=== PATIENT | male | born 1995 | race Caucasian/White ===

== ENCOUNTER 2020-03-17 09:41 | Emergency (ER) | payer OTHER, SELFPAY ==
--- NOTE | ~2020-03-17 | CT_ITS ---
EXAMINATION: CT abdomen pelvis w con DATE: 03/17/2020 11:35 INDICATION: Abdominal pain TECHNIQUE: Computed tomography (CT) of the abdomen and pelvis was performed with 100 mL Omnipaque-350 intravenous contrast. Automated exposure control and iterative reconstruction technique were employe d. The dose-length product was 1328.39 mGy-cm. COMPARISON: 02/17/2019 FINDINGS: Mild atelectasis at the right lung base. A couple poorly defined subcentimeter groundglass opacities at the lingula which are new since the prior study and which could be either infectious/inflammatory in etiology or additional subsegmental atelectasis. Heart size is normal. No pericardial or pleural e ffusion. Liver, gallbladder, spleen, pancreas, bilateral adrenal glands and right kidney are normal. Left kidney is normal in appearance but is more inferiorly positioned than normal with accessory left renal artery and vein supplying the lower pole extending to the aorta and inferior vena cava near th e bifurcation and 2 additional accessory left renal arteries extending to the caudal tip of the left kidney from both the left and right common iliac arteries. Normal appendix. Bowels are normal with no wall thickening or obstruction. Bladder and prostate are normal. No free intraperitoneal gas or flui d. No pathologically enlarged abdominal or pelvic lymphadenopathy. Small fat-containing umbilical her josefa. Multiple small Schmorl's nodes in the thoracic spine. Mild likely physiologic anterior wedging a t T11 and T12. IMPRESSION: 1. No acute intra-abdominal/pelvic process. 2. A couple small groundglass opacities at the lingula which could be either infectious/inflammatory in etiology or atelectasis. Reviewed, dictated and finalized at location A. IMPRESSION: 1. No acute intra-abdominal/pelvic process. 2. A couple small groundglass opacities at the lingula which could be either in fectious/inflammatory in etiology or atelectasis.
[2020-03-17 09:55] VITALS: BP 129/93; PULSE 96; RESP 16; TEMP 37.2; O2SAT 100
[2020-03-17 10:16] LABS: Basophils Percent Auto 0.4 % (0.2-1.2); Eosinophils Absolute Auto 0.3 K/mm3 (0-0.3); Eosinophils Percent Auto 3.9 % (0-4.4); Hematocrit 43.8 % (42.0-52.0); Hemoglobin 14.8 g/dL (14.0-18.0); Immature Granulocyte Absolute 0.03 K/mm3 (0.00-0.031); Immature Granulocyte Percent A 0.4 % (0-0.5); Lymphocytes Absolute Auto 2.82 K/mm3 (0.9-3.2); Lymphocytes Percent Auto 35.7 % (18.3-44.2); Mean Corpuscular HGB Conc 33.8 g/dl (32-36); Mean Corpuscular Hemoglobin 29.9 pg (26-34); Mean Corpuscular Volume 88.5 fl (80-100); Mean Platelet Volume 9.2 fl (7.4-10.4); Monocytes Absolute Auto 0.6 K/mm3 (0.1-0.6); Monocytes Percent Auto 7.5 % (2.6-8.5); Neutrophils Absolute Auto 4.1 K/mm3 (1.3-6.7); Neutrophils Percent Auto 52.1 % (45.5-73.1); Platelet Count Result 282 k/mm3 (150-375); Red Blood Count 4.95 M/mm3 (4.6-6.20); Red Cell Distribution Width 12.2 % (11.5-14.5); White Blood Count 7.9 K/mm3 (4.5-10.0)
[2020-03-17 10:18] LABS: Add Urine Microscopic? NO; Appearance Urine Clear (Clear); Bilirubin Urine Negative (Negative); Blood Urine Negative (Negative); Color Urine Straw (Yellow); Glucose Urine UA Negative (Negative); Ketones Urine Negative (Negative); Leukocyte Esterase Ur Negative LEU/UL (Negative); Nitrate Urine Negative (Negative); Protein Urine Negative (Negative); Specific Grav Ur 1.024 (1.001-1.035); Urobilinogen Urine Negative mg/dL (<2.0)
[2020-03-17 10:46] LABS: Alanine Aminotransferase 15 U/L (4-50); Albumin Level 4.8 g/dL (3.5-5.1); Alkaline Phosphatase 51 U/L (38-126); Aspartate Amino Transferase 28 U/L (17-59); Bilirubin,Total 0.5 mg/dL (0.2-1.3); Blood Urea Nitrogen 15 mg/dL (9-20); Calcium 9.2 mg/dL (8.4-10.2); Carbon Dioxide 27 mmol/L (22-30); Chloride 101 mmol/L (98-107); Estimated CRCL calculation 115 ml/min; Estimated Glomerular Filt Rate > 60; Glucose 75 mg/dL (75-110); Lipase 82 U/L (23-300); Potassium 3.9 mmol/L (3.4-5.0); Sodium 137 mmol/L (137-145)
[2020-03-17] MEDS: SODIUM CHLORIDE 0.9% IV 1,000 ML 999 ML IV CONT (10:50)
[2020-03-17] MEDS: FAMOTIDINE 20 MG/2 ML VIAL IV PUSH (10:50)
--- NOTE | 2020-03-17 11:19 | ED.ABDPAIN ---
HPI - Abdominal Pain General Chief Complaint: Abdominal Pain Stated Complaint: abd pain Time Seen by Provider: 03/17/20 10:13 Source: patient Mode of arrival: ambulatory Limitations: no limitations History of Present Illness HPI narrative: Patient is a 25-year-old male who presents to emergency department for evaluation of generalized abdominal pain that is now worsened and located to the right lower quadrant has been present for 1 week patient notes that this is different for him notes some nausea but denies vomiting notes that he had had some loose stools with some red blood noted. Patient denies fever vomiting. Patient does note history of possible irritable bowel disease. Patient on arrival is in the room in no distress has not been seen for this complaint. Patient notes that he is followed by gastroenterology Related Data Home Medications Medication Instructions Recorded Confirmed mesalamine [Pentasa] PO 03/17/20 Allergies Allergy/AdvReac Type Severity Reaction Status Date / Time No Known Allergies Allergy Unknown Verified 03/17/20 10:13 Review of Systems Review of Systems: All systems reviewed & are unremarkable except as noted in HPI and below PMFSH Social History Social History (Updated 03/17/20 @ 11:29 by Ed Humphreys PA-C) Smoking status: Never smoker Exam Narrative: Exam Narrative: GENERAL: Well-appearing, well-nourished, and in no acute distress. HEAD: Normocephalic, atraumatic. EYES: PERRLA and EOMI. ENT: Nares clear, no rhinorrhea or epistaxis. Mucous membranes moist. CHEST: Clear to auscultation. No respiratory distress. No wheezes rales or rhonchi HEART: Regular rate and rhythm. No murmur heard. Normal peripheral pulses. ABDOMEN: Soft, right lower quadrant tenderness to palpation, nondistended EXTREMITIES: Normal range of motion. No edema. SKIN: Warm, dry, no rash. NEURO: No focal deficits. Alert and oriented x3. PSYCH: Normal mood and affect. 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 Patient felt appropriate for outpatient reevaluation without any high risk changes in the blood work or imaging Vital Signs Vital signs: Vital Signs Temperature 99 F 03/17/20 09:55 Pulse Rate 96 03/17/20 09:55 Respiratory Rate 16 03/17/20 09:55 Blood Pressure 129/93 H 03/17/20 09:55 Pulse Oximetry 100 03/17/20 09:55 Temperature 99 F 03/17/20 09:55 Pulse Rate 96 03/17/20 09:55 Respiratory Rate 16 03/17/20 09:55 Blood Pressure 129/93 H 03/17/20 09:55 Pulse Oximetry 100 03/17/20 09:55 MDM - Abdominal Pain MDM Narrative Medical decision making narrative: Patient agreeing to follow-up as directed was given medications in the emergency department patient felt appropriate for outpatient reevaluation agreeing to follow-up as directed or to return if symptoms worsen or concern Differential Diagnosis Differential diagnosis: Likely abdominal pain, acute appendicitis, calculus of kidney, constipation, diverticulitis, gastroenteritis and small bowel obstruction Lab Data Result diagrams: 03/17/20 10:02 03/17/20 10:02 Labs: Lab Results 03/17/20 03/17/20 03/17/20 Range/Units 10:02 10:02 10:02 WBC 7.9 (4.5-10.0) K/mm3 RBC 4.95 (4.6-6.20) M/mm3 Hgb 14.8 (14.0-18.0) g/dL Hct 43.8 (42.0-52.0) % MCV 88.5 (80-100) fl MCH 29.9 (26-34) pg MCHC 33.8 (32-36) g/dl RDW 12.2 (11.5-14.5) % Plt Count 282 (150-375) k/mm3 MPV 9.2 (7.4-10.4) fl Immature Gran % (Auto) 0.4 (0-0.5) % Neut % (Auto) 52.1 (45.5-73.1) % Lymph % (Auto) 35.7 (18.3-44.2) % [place] % (Auto) 7.5 (2.6-8.5) % Eos % (Auto) 3.9 (0-4.4) % Baso % (Auto) 0.4 (0.2-1.2) % Lymph # (Auto) 2.82 (0.9-3.2) K/mm3 [place] # (Auto) 0.6 (0.1-0.6) K/mm3 Eos # (Auto) 0.3 (0-0.3) K/mm3
[2020-03-17 11:59] VITALS: BP 121/59; PULSE 55; RESP 18; O2SAT 99
[2020-03-17 12:40] VITALS: BP 141/81; PULSE 64; RESP 14; O2SAT 99
== END 2020-03-17 12:41 | disposition home or self-care (01) ==
PROVIDERS: Emergency Provider Emergency Medicine
DX: R10.84 Generalized abdominal pain (principal)
CPT/HCPCS: 36415; 74177; 80053; 81003; 83690; 85025; 96361; 96374; 96375; 99284; J0131; J7030; Q9967

== ENCOUNTER 2020-06-20 06:26 | Emergency (ER) | payer OTHER, SELFPAY ==
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
[2020-06-20 06:32] VITALS: BP 150/85; PULSE 100; RESP 18; TEMP 36.9; O2SAT 100
--- NOTE | 2020-06-20 06:54 | PC.NURSE ---
Patient in xray.
--- NOTE | 2020-06-20 07:10 | PC.NURSE ---
ASSUMED PT CARE AT THIS TIME FROM RN CAT, PT IN RADIOLOGY.
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
[2020-06-20 08:55] VITALS: BP 129/68; PULSE 72; RESP 18; O2SAT 100
== END 2020-06-20 08:56 | disposition home or self-care (01) ==
PROVIDERS: Emergency Provider Emergency Medicine
DX: S16.1XXA Strain of muscle, fascia and tendon at neck level, initial encounter (principal); M25.511 Pain in right shoulder; V49.40XA Driver injured in collision with unspecified motor vehicles in traffic accident, initial encounter
CPT/HCPCS: 72040; 73030; 73060; 73080; 99284

== ENCOUNTER 2020-09-16 16:58 | Emergency (ER) | payer OTHER, SELFPAY ==
--- NOTE | ~2020-09-16 | CT_ITS ---
EXAMINATION: CT abdomen pelvis w con DATE: 09/16/2020 20:05 INDICATION: Left lower quadrant abdominal pain with rectal bleeding TECHNIQUE: Computed tomography (CT) of the abdomen and pelvis was performed with 100 mL Omnipaque-350 intravenous contrast. Automated exposure control and iterative reconstruction technique were employe d. The dose-length product was 1400.60 mGy-cm. COMPARISON: 03/17/2020 FINDINGS: Mild discoid atelectasis at the right lower lobe. Prior small round glass opacities at the lingula bright ve resolved. Heart size is normal. No pericardial or pleural effusion. Liver, gallbladder, spleen, pa ncreas, bilateral adrenal glands and right kidney are normal. Left kidney is normal in appearance but is more inferiorly positioned than normal with additional accessory renal arteries as previously det demetrio. There are few diverticula along the sigmoid colon without adjacent inflammatory change to sugg est diverticulitis. Small bowel and appendix are normal. Bladder and prostate are normal. No free int raperitoneal gas or fluid. No pathologically enlarged abdominal or pelvic lymphadenopathy. Small fat- containing umbilical hernia. Multiple small Schmorl's nodes in the thoracic spine. Mild likely physio logic anterior wedging at T11 and T12. IMPRESSION: 1. No acute intra-abdominal/pelvic process. Reviewed, dictated and finalized at location A. 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
[2020-09-16 17:03] VITALS: BP 149/82; PULSE 110; RESP 16; TEMP 36.3; O2SAT 100
[2020-09-16 17:44] LABS: Add Urine Microscopic? YES; Appearance Urine Clear (Clear); Bilirubin Urine Negative (Negative); Blood Urine Negative (Negative); Color Urine Yellow (Yellow); Glucose Urine UA Negative (Negative); Ketones Urine Negative (Negative); Leukocyte Esterase Ur Trace LEU/UL (Negative); Nitrate Urine Negative (Negative); Protein Urine Negative (Negative); RBC Urine 0-2 /hpf (0-2); Specific Grav Ur 1.019 (1.001-1.035); Squamous Epithelial Cell Urine Rare /hpf (Few); Urobilinogen Urine Negative mg/dL (<2.0)
[2020-09-16 18:25] LABS: Basophils Absolute Auto 0.1 K/mm3 (0.0-0.1); Basophils Percent Auto 0.6 % (0.2-1.2); Eosinophils Absolute Auto 0.3 K/mm3 (0-0.3); Eosinophils Percent Auto 3.8 % (0-4.4); Hematocrit 42.6 % (42.0-52.0); Hemoglobin 14.8 g/dL (14.0-18.0); Immature Granulocyte Absolute 0.02 K/mm3 (0.00-0.031); Immature Granulocyte Percent A 0.3 % (0-0.5); Lymphocytes Absolute Auto 2.54 K/mm3 (0.9-3.2); Mean Corpuscular HGB Conc 34.7 g/dl (32-36); Mean Corpuscular Hemoglobin 30.5 pg (26-34); Mean Corpuscular Volume 87.8 fl (80-100); Mean Platelet Volume 9.2 fl (7.4-10.4); Monocytes Absolute Auto 0.5 K/mm3 (0.1-0.6); Monocytes Percent Auto 5.7 % (2.6-8.5); Neutrophils Absolute Auto 4.6 K/mm3 (1.3-6.7); Neutrophils Percent Auto 57.6 % (45.5-73.1); Platelet Count Result 241 k/mm3 (150-375); Red Blood Count 4.85 M/mm3 (4.6-6.20); Red Cell Distribution Width 12.1 % (11.5-14.5); White Blood Count 7.9 K/mm3 (4.5-10.0)
[2020-09-16 18:36] LABS: Alanine Aminotransferase 16 U/L (4-50); Albumin Level 4.5 g/dL (3.5-5.1); Alkaline Phosphatase 50 U/L (38-126); Anion Gap 6 mmol/L (8-16); Aspartate Amino Transferase 34 U/L (17-59); Bilirubin,Total 0.5 mg/dL (0.2-1.3); Blood Urea Nitrogen 17 mg/dL (9-20); Calcium 9.3 mg/dL (8.4-10.2); Carbon Dioxide 29 mmol/L (22-30); Chloride 102 mmol/L (98-107); Estimated CRCL calculation 126 ml/min; Estimated Glomerular Filt Rate > 60; Glucose 95 mg/dL (75-110); Lipase 58 U/L (23-300); Potassium 3.7 mmol/L (3.4-5.0); Sodium 137 mmol/L (137-145)
[2020-09-16 18:53] VITALS: BP 125/71; PULSE 75; RESP 18; O2SAT 100
[2020-09-16] MEDS: METOCLOPRAMIDE HCL INJ 10 MG/2 ML VIAL IV PUSH (18:53)
--- NOTE | 2020-09-16 20:24 | ED.ABDPAIN ---
HPI - Abdominal Pain General Chief Complaint: Abdominal Pain <RENY Andrew Last Filed: 09/16/20 20:42> Stated Complaint: L SIDED ABD PAIN XTD <RENY Andrew Last Filed: 09/16/20 20:42> Time Seen by Provider: 09/16/20 17:23 <RENY Andrew Last Filed: 09/16/20 20:42> Source: patient <RENY Andrew Last Filed: 09/16/20 20:42> Mode of arrival: ambulatory <RENY Andrew Last Filed: 09/16/20 20:42> Limitations: no limitations <RENY Andrew Last Filed: 09/16/20 20:42> History of Present Illness HPI narrative: Patient presents with chief complaint of left lower quadrant abdominal pain. And some rectal bleeding that began today. Patient states that he has been diagnosed with irritable bowel disease but he has not been diagnosed with Crohn's or ulcerative colitis. He states that he has a GI specialist that he sees in [place] and he is on Pentasa for his stomach symptoms. Patient states that he did have some diarrhea the past few days. Patient reports today after having a bowel movement he did note bright red blood when wiping as well as some drip into the toilet. Patient states he has some nausea but has not had vomiting or black tarry stools. <RENY Andrew Last Filed: 09/16/20 20:42> Related Data Home Medications: Home Medications Medication Instructions Recorded Confirmed mesalamine [Pentasa] 1,000 mg PO QID 03/17/20 <RENY Andrew Last Filed: 09/16/20 20:42> Allergies/Adverse Reactions: Allergies Allergy/AdvReac Type Severity Reaction Status Date / Time No Known Allergies Allergy Unknown Verified 06/20/20 06:29 <RENY Andrew Last Filed: 09/16/20 20:42> Review of Systems Review of Systems: Narrative: CONSTITUTIONAL: Denies fever, chills, or sweats. EYES: Denies visual changes, redness, or discharge. ENT: Denies rhinorrhea, congestion, sore throat, or otalgia. CARDIOVASCULAR: Denies chest pain, palpitations, or edema. RESPIRATORY: Denies cough or dyspnea. GASTROINTESTINAL: Reports left lower quadrant abdominal pain, nausea, denies vomiting, or diarrhea. GENITOURINARY: Denies dysuria or hematuria. SKIN: Denies rash or itching. MUSCULOSKELETAL: Denies back pain, joint pain, or myalgia. NEUROLOGIC: Denies headache, numbness, dizziness, or weakness. PSYCHIATRIC: Denies anxiety or depression. <Marcus Mazariegos PA-C - Last Filed: 09/16/20 20:42> PMFSH Social History Social History: Social History Smoking status: Never smoker Gender identity (if verbalized by the patient): Male <Marcus Mazariegos PA-C - Last Filed: 09/16/20 20:42> Exam Narrative: Exam Narrative: GENERAL: Well-appearing, well-nourished, and in no acute distress. HEAD: Normocephalic, atraumatic. EYES: PERRLA and EOMI. NECK: Supple. No adenopathy or masses. CHEST: Clear to auscultation. No respiratory distress. No wheezes rales or rhonchi HEART: Regular rate and rhythm. No murmur heard. Normal peripheral pulses. ABDOMEN: Soft, mildly tender with deep palpation, nondistended, normal active bowel sounds.There is positive Hemoccult but not blood running out of rectum. external hemorrhoids not noted. Patient refused to relax enough for thorough exam for internal hemorrhoids. EXTREMITIES: Normal range of motion. No edema. SKIN: Warm, dry, no rash. NEURO: No focal deficits. Alert and oriented x3. PSYCH: Normal mood and affect. <Marcus Mazariegos PA-C - Last Filed: 09/16/20 20:42> Course Vital Signs Vital signs: Vital Signs Temperature 97.4 F L 09/16/20 17:03 Pulse Rate 110 H 09/16/20 17:03 Respiratory Rate 16 09/16/20 17:03 Blood Pressure 149/82 H 09/16/20 17:03 Pulse Oximetry 100 09/16/20 17:03 Temperature 97.4 F L 09/16/20 17:03 Pulse Rate 81 09/16/20 20:48 Respiratory Rate 18 09/16/20 20:48 Blood Pressure 124/72
[2020-09-16 20:48] VITALS: BP 124/72; PULSE 81; RESP 18; O2SAT 98
== END 2020-09-16 20:59 | disposition home or self-care (01) ==
PROVIDERS: Physician Assistant; Emergency Provider General Practice
DX: R10.32 Left lower quadrant pain (principal); K62.5 Hemorrhage of anus and rectum; K58.9 Irritable bowel syndrome, unspecified
CPT/HCPCS: 36415; 74177; 80053; 81001; 83690; 85025; 96365; 96375; 99284; J0131; J2765; Q9967

== ENCOUNTER 2022-11-04 10:13 | Emergency (ER) | payer OTHER, SELFPAY ==
--- NOTE | ~2022-11-04 | XR_ITS ---
EXAMINATION: [id number] DATE: 11/04/2022 10:56 INDICATION: Left chest pain. TECHNIQUE: A frontal view of the chest and 2 views on 3 radiographs of the left ribs were obtained. COMPARISON: None. FINDINGS: The chest demonstrates clear lungs without pneumonia, pleural effusion, or pneumothorax. Th e heart size is normal. IMPRESSION: 1. No rib fracture. 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 No rib fracture.
[2022-11-04 10:30] VITALS: BP 130/71; PULSE 75; RESP 16; TEMP 36.9; O2SAT 98
--- NOTE | 2022-11-04 10:37 | ED.CHESTPAIN ---
HPI - Chest Pain General Chief Complaint: Unspecified Stated Complaint: chest pain,finger numbness Time Seen by Provider: 11/04/22 11:03 Source: patient Mode of arrival: ambulatory Limitations: no limitations History of Present Illness HPI narrative: 37-year-old male presents concern for right-sided rib pain that started 2 days ago. 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 his right rib area. Reports a goes from the front the ribs on armpit into the back of the ribs. He denies any direct trauma. Denies present swelling, redness. Denies rash. Reports he has rested and used ice. Reports pain is slowly improving. He reports pain is exacerbated by activity, deep breathing and coughing. MD complaint: other (Chest wall pain) Related Data Allergies Allergy/AdvReac Type Severity Reaction Status Date / Time No Known Allergies Allergy Unknown Verified 11/04/22 10:48 Review of Systems Review of Systems: CONSTITUTIONAL: Denies malaise, chills, sweats, or fever. CARDIOVASCULAR: Denies chest pain, palpitations, or edema. RESPIRATORY: Denies cough or dyspnea. GASTROINTESTINAL: Denies abdominal pain, nausea, vomiting, diarrhea SKIN: Denies bruising, redness, swelling, rash MUSCULOSKELETAL: Reports right rib pain NEUROLOGIC: Denies numbness, weakness All systems reviewed & are unremarkable except as noted in HPI and below PMFSH Social History Social History Smoking status: Never smoker Gender identity (if verbalized by the patient): Male Comments At time of signature, agree with nursing past medical, surgical, social and family history. There is no relevant family history pertinent to the presenting complaint Exam Narrative: GENERAL: Well-appearing, well-nourished, and in no acute distress. HEAD: Normocephalic, atraumatic. EYES: PERRLA, sclera clear, and EOMI. No nystagmus. ENT: Nares clear. Mucous membranes moist. NECK: Supple. CHEST: No respiratory distress. Clear to auscultation. No bony deformities, no asymmetry. Speaks in full sentences. HEART: Regular rate and rhythm. No murmur heard. Normal peripheral pulses. EXTREMITIES: Normal range of motion. No edema. Normal strength and sensation. SKIN: Warm, dry, no visible rash. No bruising, redness, warmth to chest or rib area. Tenderness to the right mid ribs NEURO: Alert and oriented x3. PSYCH: Normal mood and affect Course Course Emergency Course: Patient is aware of diagnosis, understands and agrees to treatment plan. Anticipatory guidance given. Patient agrees to follow-up as directed and is aware of reasons to seek care at the emergency department. Portions of this record may have been created with voice recognition software Level of Care: Express Care Visit Vital Signs Vital signs: Vital Signs Temperature 98.4 F 11/04/22 10:30 Pulse Rate 75 11/04/22 10:30 Respiratory Rate 16 11/04/22 10:30 Blood Pressure 130/71 11/04/22 10:30 Pulse Oximetry 98 11/04/22 10:30 Temperature 98.4 F 11/04/22 10:30 Pulse Rate 75 11/04/22 10:30 Respiratory Rate 16 11/04/22 10:30 Blood Pressure 130/71 11/04/22 10:30 Pulse Oximetry 98 11/04/22 10:30 Reviewed. MDM - Chest Pain MDM Narrative Medical decision making narrative: Patients injury and pain is consistent with musculoskeletal etiology. No signs of neurological or vascular compromise on exam. Pain is felt appropriate for further evaluation on an outpatient basis. Imaging Data My impression: Images reviewed, interpreted by radiologist, agree, see report. Radiologist's impression: EXAMINATION: [id number] DATE: 11/04/2022 10:56 INDICATION: Left chest pain. TECHNIQUE: A frontal view of the chest and 2 views on 3 radiographs of the left ribs were obtained. COMPARISON: None. FINDINGS: The chest demonstrates clear lungs without pneumonia, pleural effusion, or pneumothorax. The heart size is normal. IMPRESSIO
== END 2022-11-04 11:18 | disposition home or self-care (01) ==
PROVIDERS: Emergency Provider Nurse Practitioner
DX: R07.81 Pleurodynia (principal)
CPT/HCPCS: 71101; 99213; G0463

== ENCOUNTER 2024-08-04 13:19 | Emergency (ER) | payer OTHER, SELFPAY ==
--- NOTE | 2024-08-04 13:20 | ED.URI ---
HPI - URI/Sore Throat General Chief Complaint: Upper Respiratory Infection Stated Complaint: Sinus/Fever Time Seen by Provider: 08/04/24 13:20 Source: patient Mode of arrival: ambulatory Limitations: no limitations History of Present Illness HPI Narrative: Patient is a 29-year-old male who presents with 6 days of congestion, fever, chills and productive cough. Patient has also had few episodes of diarrhea. Reports family members in house have been diagnosed with pneumonia. Patient has history of asthma and has been using his albuterol inhaler. Patient has also been using [id number] medication with no relief. Related Data Allergies Allergy/AdvReac Type Severity Reaction Status Date / Time No Known Allergies Allergy Unknown Verified 08/04/24 13:36 Review of Systems Review of Systems: All systems reviewed & are unremarkable except as noted in HPI and below Constitutional: Constitutional: Denies body ache(s), Denies chills, Denies fatigue, Reports fever(s), Denies headache(s), Denies malaise and Denies weakness Eyes: Eyes: Denies blurry vision, Denies itchy eyes and Denies loss of vision ENT: Denies otalgia, Denies headache(s), Reports nasal congestion, Denies sinus pain and Denies sore throat Cardiovascular: Cardiovascular: Denies chest pain, Denies irregular heart rhythm and Denies dyspnea Respiratory: Respiratory: Reports cough and Denies dyspnea Gastrointestinal: Gastrointestinal: Denies abdominal pain, Reports diarrhea, Denies nausea and Denies vomiting Musculoskeletal: Musculoskeletal: Denies back pain, Denies myalgias and Denies arthralgias Integumentary/Breasts: Skin/Breast: Denies pruritus and Denies rash Neurologic: Denies headache(s), Denies loss of vision and Denies weakness Psychiatric: Psychiatric: Reports no additional psychiatric complaints Endocrine: Endocrine: Denies fatigue Allergic/Immunologic: Allergic/Immunologic: Denies itchy eyes PMFSH Social History Social History Smoking status: Never smoker Gender identity (if verbalized by the patient): Male Comments At time of signature, agree with nursing past medical, surgical, social and family history. There is no relevant family history pertinent to the presenting complaint. Exam Const: General: cooperative, healthy appearing, comfortable, no acute distress and well nourished Nutritional Appearance: well nourished Orientation/consciousness: patient oriented x3 Limitations: no limitations HENMT: Head: normal to inspection, normocephalic and atraumatic Ears: hearing grossly normal bilaterally, external ears normal, TM's normal bilaterally, EAC's normal and no periauricular adenopathy Face/Nose/Sinus: Normal external nose present, Abnormal mucous membranes and turbinates present erythematous bilateral and diffuse, normal facial exam, sinuses nontender and face symmetric Face and sinus: normal facial exam, sinuses nontender and face symmetric Mouth: Yes Normal oral and palatal mucosa present, Yes lip normal, Yes tongue normal, Yes Normal salivary glands and ducts present, Yes oropharynx normal and Yes moist mucous membranes Teeth and gingiva: dentition normal Throat: posterior oropharynx normal, tonsils normal and uvula midline Eyes: General: appearance normal, both eyes and all related structures Alignment and Position: alignment normal and position normal Periorbital: periorbital findings normal Eyelids: eyelids normal Pupils: Equal, round and reactive pupils present Neck: Neck: normal visual inspection, full ROM, no lymphadenopathy and supple Chest: Chest palpation & inspection: normal inspection of the chest and normal palpation of entire chest wall Resp: Effort & Inspection: normal respiratory effort and able to speak in complete sentences Auscultation: no crackles, no rales, no rhonchi and wheezes inspiratory wheezes and throughout Cardio: Rate: regular rate Rhythm: regular rhythm Heart sounds: S1 normal heart sound present and S2 normal heart sound present GI: Inspection: normal to inspection Skin: General skin exam: normal color and no rashes or lesions noted Neuro: General: patient oriented x3 and moves all extremities Cranial nerves: Yes Equal, round and reactive pupils present Speech: normal speech Gait exam (Neuro): Normal gait present Extrem: General: normal to inspection, full ROM and no edema Psych: Appearance: grossly normal and well kempt Mental Status: mental status grossly normal Speech and movement: Normal speech and movement present Affect: normal affect Attitude: cooperative Thought process: Normal thought process present Course Course Emergency Course: Patient is aware of diagnosis, understands and agrees to treatment plan. Anticipatory guidance given. Patient agrees to follow-up as directed and is aware of reasons to seek care at the emergency department. Portions of this record may have been created with voice recognition software Level of Care: Express Care Visit Vital Signs Vital signs: Vital Signs Temperature 36.9 C 08/04/24 13:29 Pulse Rate 81 08/04/24 13:29 Respiratory Rate 16 08/04/24 13:29 Blood Pressure 137/75 08/04/24 13:29 Pulse Oximetry 96 08/04/24 13:29 Oxygen Delivery Room Air 08/04/24 13:29 Temperature 36.9 C 08/04/24 13:29 Pulse Rate 81 08/04/24 13:29 Respiratory Rate 16 08/04/24 13:29 Blood Pressure 137/75 08/04/24 13:29 Pulse Oximetry 96 08/04/24 13:29 Oxygen Delivery Room Air 08/04/24 13:29 Reviewed MDM - URI/Sore Throat MDM Narrative Medical decision making narrative: Discharge instructions reviewed with patient, as well as provided in writing per nursing staff. The instructions also include specific and strict return/GO TO THE ER as well as f/u information. All questions have been answered, and the patient deny any further questions with discharge and discharge plan. Differential diagnosis considered: Mart virus, strep pharyngitis, allergic rhinitis, upper respiratory tract infection, sinusitis, rhinosinusitis, nasopharyngitis. viral pharyngitis, otitis media, otitis externa, otitis effusion, foreign body, cerumen impaction, viral syndrome, and influenza.? Exam findings show no acute concerns or changes; patient is non-toxic appearing and is in no distress.? Patient is appropriate for outpatient treatment and follow-up.? Medical Records Attestation: I reviewed the patient's medical records. Discharge Plan Discharge Clinical Impression: Upper respiratory infection with cough and congestion, History of asthma Patient Disposition: Home, Self-Care Condition: Stable Instructions: Upper Respiratory Infection (ED) Additional Instructions: Take antibiotic as prescribed. Take steroids in the morning with food. Use Tessalon Perles as needed for cough. Use inhaler with spacer as needed. Other symptomatic treatments include: -Alternate Tylenol and Motrin per package directions for fever or pain. -Antihistamine medication such as Benadryl at night and Zyrtec/Claritin/Brittani during the day can help improve symptoms. -Use Flonase twice a day for 5 days then daily to help reduce the inflammation and dry up your sinuses. -You can also use Sudafed or Mucinex. Be sure to drink plenty of water with these medications at least 8 ounces with every dose and it is important to drink 8 to 10 glasses of water per day. Water is a natural decongestant -Eat and drink things that are easy to swallow, like tea or soup, or popsicles. -Oral rinses such as: Salt water gargles and/or may use topical anesthetic (eg. Chloraseptic spray) or lozenges to relieve dryness or throat pain). -Frequent hand washing or hand consumer science teacher is one of the best ways to prevent spread of infection. -Using a vaporizer or humidifier at night will also help thin secretions and help with coughing up phlegm. -Follow up with primary care provider in 3-5 days if condition is not improving - For new or worsening symptoms go directly to the nearest ER Prescriptions: New benzonatate 100 mg capsule 100 mg PO BID PRN (Reason: cough) Qty: 14 0RF albuterol sulfate 90 mcg/actuation HFA aerosol inhaler 2 puff inhalation QID PRN (Reason: shortness of breath or wheezing) Qty: 6.7 0RF prednisone 20 mg tablet 40 mg PO DAILY 5 Days Qty: 10 0RF amoxicillin 875 mg tablet 875 mg PO Q12H 7 Days Qty: 14 0RF Follow-up/Referrals: Nav Kelsey MD [Physician] - 3 Days (Establish care) UNKNOWN,DOCTOR [Non-Staff] - Time of Disposition: 14:20
[2024-08-04 13:29] VITALS: BP 137/75; PULSE 81; RESP 16; TEMP 36.9; O2SAT 96
== END 2024-08-04 14:25 | disposition home or self-care (01) ==
PROVIDERS: Emergency Provider Nurse Practitioner Family
DX: J06.9 Acute upper respiratory infection, unspecified (principal); R05.9 Cough, unspecified; J45.909 Unspecified asthma, uncomplicated; K50.90 Crohn's disease, unspecified, without complications; F84.5 Asperger's syndrome; F12.90 Cannabis use, unspecified, uncomplicated
CPT/HCPCS: 99213; G0463

== ENCOUNTER 2025-01-13 14:07 | Emergency (ER) | payer OTHER, SELFPAY ==
--- NOTE | ~2025-01-13 | CT_ITS ---
EXAMINATION: CT BRAIN W/O DATE: 01/13/2025 14:40 INDICATION: Headache TECHNIQUE: Computed tomography (CT) of the head was performed without intravenous contrast. The dose- length product was 605.33 mGy-cm. Automated exposure control and iterative reconstruction technique were employed. COMPARISON: No prior studies for comparison. FINDINGS: Normal brain parenchymal volume for age. Normal eastman-white differentiation. No acute intrac ranial hemorrhage, infarction, mass or mass effect. No ventriculomegaly or midline shift. Midline sagittal images demonstrate a normal corpus callosum, c raniovertebral junction and sella turcica. Basilar cisterns are patent. There is mild mucosal thickening of the ethmoid sinuses. Mastoids are pneumatized. No depressed skull fractures. IMPRESSION: 1. No acute intracranial abnormality. Reviewed, dictated and finalized at location A.
[2025-01-13 14:09] VITALS: PULSE 75; RESP 16; TEMP 36.6; O2SAT 98
--- OUTSIDE RECORDS SUMMARY | 2025-01-13 14:16 | XMS_ITS | Referral Summary ---
Author Organization [facility] Address [address] [place] [address] Care Team Providers Care Bit Sander Name Role Phone Veronica Rebolledo Primary Care Provider [phone] Allergies No known active allergies Medications amitriptyline (ELAVIL) 25 mg tablet TK 2 TS PO QHS 0 10/03/2018 Active mesalamine (PENTASA) 500 mg CR capsule Take 500 mg by mouth 4 (four) times a day Active linaCLOtide (LINZESS) 145 mcg capsule 145 mcg daily Active albuterol (PROAIR RESPICLICK) 90 mcg/actuation inhaler Inhale 2 puffs 4 (four) times a day 1 Inhaler 12/21/2019 Active Active Problems Problem Noted Date Diagnosed Date BMI 39.0-39.9,adult 10/29/2019 Assessment & Plan (11/15/2019 4:13 PM CDT): Obesity is unchanged. Discussed the patient's BMI. The BMI is above average. BMI management plan is completed. BMI Follow-up includes: nutrition counseling, exercise counseling and education provided. Positive depression screening 10/29/2019 Assessment & Plan (11/15/2019 4:13 PM CDT): Discussed considering Cymbalta due to the positive screen and pain. Pt declines at this point. If sxs increase, notes suicidal or homicial thoughts (currently denies) he is to followup immediately or go to ER BMI 40.0-44.9, adult 08/11/2019 Assessment & Plan (08/11/2019 1:46 PM BRAZER HELPER INDUCTION): Obesity is unchanged. Discussed the patient's BMI. The BMI is above average. BMI management plan is completed. BMI Follow-up includes: nutrition counseling, exercise counseling and education provided. Morbid obesity 08/11/2019 Assessment & Plan (08/11/2019 1:46 PM BRAZER HELPER INDUCTION): Obesity is unchanged. Discussed the patient's BMI. The BMI is above average. BMI management plan is completed. BMI Follow-up includes: nutrition counseling, exercise counseling and education provided. 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 Another order given as he didn't follow thru with it last time. If sxs persist, may consider referral back to the specialist that have treated him in the past. Knee pain 01/16/2012 Pain of lower extremity 07/06/2011 Assessment & Plan (08/17/2019 8:29 PM BRAZER HELPER INDUCTION): Pain in the lower leg. Recommend PT to better assess his sxs. He is willing to go. Use NSAIDs as tolerated. If sxs persist, may consider returning to [facility] as this was where his original peroneal nerve surgery was done. Immunizations Immunization Administration Dates Next Due DTaP, Unspecified 07/10/1997, 7,1996,05/02 HPV, Quadrivalent 07/09/2012,04/01/2012,07/05/20 11 Hep A, Unspecified 05/02/2010,11/02/2006 Hep B, Unspecified 01/06/1997,1996, 996 HiB 1996,1996,1996 Influenza, Quadrivalent, Spl it, Preservative Free, Intramuscular 06/24/2017 Influenza, Trivalent, Preser vative Free, Intramuscular 07/23/2014 Influenza, Unspecified 06/02/2018,2012,07/09/2012,07/05,06/09/2010,06/08/2009,07/22/2008 ,06/12/2007 MMR 04/21/1997 Meningococcal ACWY, Unspecified 09/24/2014,05/02 Polio, Unspecified 1996,1996, 996 Tdap 01/12/2015,11/02/2006 Varicella 11/02/2006,04/21/1997 Social History Tobacco Use Types Packs/Day Years Used Date Smoking Tobacco: Former Cigarettes Smokeless Tobacco: Never Comments:Smoked for one french h Alcohol Use Standard Drinks/Week Comments No 0 (1 standard drink = 0.6 oz pur e alcohol) PHQ-2 Answer Date Recorded PHQ-2 Score 3 10/29/2019 Sex and Gender Information Value Date Recorded Sex Assigned at Not on file Legal Sex Male 8:03 AM BRAZER HELPER INDUCTION Gender Identity Not on file Sexual Orientation Not on file Last Filed Vital Signs Vital Sign Reading Time Taken Comments Blood Pressure 118/70 12/21/2019 2:15 PM CDT Pulse 63 12/21/2019 1:46 PM CDT Left hand Temperature 35.9 C (96.7 F) 12/21/2019 1:44 PM CDT Respiratory Rate 18 11/25/2018 1:55 PM CDT Oxygen Saturation 98% 12/21/2019 1:46 PM CDT Left hand Inhaled Oxygen Concentration - - Weight 108.9 kg (240 lb) 12/21/2019 1:44 PM CDT Height 172.7 cm (5' 8 ) 12/21/2019 1:44 PM CDT Body Mass Index 36.49 12/21/2019 1:44 PM CDT Plan of Treatment Not on file Insurance [facility] Address: [address] [place] [address] [facility] [facility] [employer] Address: [address] [place] [address] Care Teams Bit Sander Relationship Specialty Start Date End Date Veronica Rebolledo PA [address] [facility] [address] [place] [address] PCP - General Internal Medicine 10/29/19
--- OUTSIDE RECORDS SUMMARY | 2025-01-13 14:16 | XMS_ITS | Clinical Summary ---
Author Organization [facility] Address [address] [place] [address] Care Team Providers Care Budget Record Clerk Name Role Phone Veronica Rebolledo Primary Care Provider [phone] Allergies No known active allergies Medications amitriptyline [...] 08/11/2019 Assessment & Plan (08/11/2019 1:46 PM HOOP COILER): Obesity is unchanged. Discussed the patient's BMI. The BMI is above average. BMI management plan is completed. BMI Follow-up includes: nutrition counseling, exercise counseling and education provided. Morbid obesity 08/11/2019 Assessment & Plan (08/11/2019 1:46 PM HOOP COILER): Obesity is unchanged. Discussed the patient's BMI. [...] 07/06/2011 Assessment & Plan (08/17/2019 8:29 PM HOOP COILER): Pain in the lower leg. Recommend PT to better assess his sxs. He is willing to go. Use NSAIDs as tolerated. If sxs persist, may consider returning to [facility] as this was where his original [...] Unspecified 1996,1996, 996 Tdap 01/12/2015,11/02/2006 Varicella 11/02/2006,04/21/1997 Surgical History Surgery Date Site/Laterality Comments OTHER SURGICAL HISTORY 2012 nerve compression R leg: R leg compression nerve OTHER SURGICAL HISTORY 1998 crytorchidism: bilateral plexy Medical History Medical History Date Comments Hx Other Medical 2001 Headache, migra ine Asthma 1995 Asthma Hx Other Medical 05/2013 nerve compressi on R leg Hx Other Medical crytorchidism Hx Other Medical 12/01/2014 mild lumbar spo ndylosis; Comments: LUIS ALBERTO 12/06/2014 - Family History Medical History Relation Name Comments Asthma Father Epilepsy Father Hypertension Father Hypertension; Thyroid disease Father Thyroid diso rder; Migraines Maternal Grandmother Migrain es; Migraines Mother Migraines; Thyroid disease Mother Thyroid dise ase; Relation Name Status Comments Father Maternal Grandmother Mother Social History Tobacco Use Types Packs/Day Years Used Date Smoking Tobacco: Former Cigarettes Smokeless Tobacco: Never Comments:Smoked for one french h Alcohol Use Standard Drinks/Week Comments No 0 (1 standard drink = 0.6 oz pur e alcohol) PHQ-2 Answer Date Recorded PHQ-2 Score 3 10/29/2019 Sex and Gender Information Value Date Recorded Sex Assigned at Not on file Legal Sex Male 8:03 AM HOOP COILER Gender Identity Not on file Sexual Orientation Not on file Obstetrics History Last Filed Vital Signs Vital Sign Reading [...] Plan of Treatment Not on file Insurance [facility] Address: [facility] [address] [place] [address] [facility] Address: [address] [address] [place] [address] Care Teams Budget Record Clerk Relationship Specialty Start Date End Date Veronica Rebolledo PA [address] [facility] [address] [place] [address] PCP - General Internal Medicine 10/29/19
--- OUTSIDE RECORDS SUMMARY | 2025-01-13 14:16 | XMS_ITS | Encounter Summary ---
Author Organization [facility] Care Team Providers Care Word Processor Name Role Phone Raphael Whaley MD Primary Care Provider [phone] Andrea Caputo MD Primary Care Provider [phone] Andrea Caputo MD Unavailable [phone] Veronica Rebolledo Primary Care Provider [phone] Encounter Details Date Type Department Care Team (Latest Contact Info) Description 05/09/2017 Orders Only [facility] CLIN[facility] ProviderBrandy MD [address] [place] [address] Social History Tobacco Use Types Packs/Day Years Used Date Smoking Tobacco: Never Alcohol Use Standard Drinks/Week Comments No 0 (1 standard drink = 0.6 oz pur e alcohol) Sex and Gender Information Value Date Recorded Sex Assigned at Not on file Legal Sex Male 8:03 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 us Historical Provider Final Res ult documented in this encounter Visit Diagnoses Not on filedocumented in this encounter Additional Health Concerns Infection Onset Date Last Indicated Resolved Time COVID: Suspected 12/21/2019 12/21/2019 01/04/2020 3:05 AM CDT documented as of this encounter Care Teams Word Processor Relationship Specialty Start Date End Date Raphael Whaley MD [address] [place] [address] PCP - General 01/14/15 11/11/18 Andrea Caputo MD [address] [place] [address] PCP - General Gastroenterology 11/12/18 10/28/19 [place] [address] [place] [address] PCP - General Internal Medicine 10/29/19 Andrea Caputo MD [address] [place] [address] Referring Physician Gastroenterology 11/12/18 10/28/19 documented as of this encounter
--- OUTSIDE RECORDS SUMMARY | 2025-01-13 14:16 | XMS_ITS | Encounter Summary ---
Author Organization [facility] Care Team Providers Care Instrument/Control Technician Name Role Phone Raphael Whaley MD Primary Care Provider [phone] Andrea Caputo MD Primary Care Provider [phone] Andrea Caputo MD Unavailable [phone] Veronica Rebolledo Primary Care Provider [phone] Encounter Details Date Type Department Care Team (Latest Contact Info) Description 10/07/2018 Orders Only [facility] CLINCONV ProviderBrandy MD [address] [place] [address] Social History Tobacco Use Types Packs/Day Years Used Date Smoking Tobacco: Never Alcohol Use Standard Drinks/Week Comments No 0 (1 standard drink = 0.6 oz pur e alcohol) Sex and Gender Information Value Date Recorded Sex Assigned at Not on file Legal Sex Male 8:03 AM HELP DESK OPERATOR Gender Identity Not on file Sexual Orientation Not on file documented as of this encounter Plan of Treatment Not on file documented as of this encounter Procedures Procedure Name Priority Date/Time Associated Diagnosis Comments PROCEDURE - RESULT 10/21/2018 12 :00 AM HELP DESK OPERATOR documented in this encounter Results * PROCEDURE - RESULT (10/21/2018 12:00 AM HELP DESK OPERATOR) Narrative 10/21/2018 12:00 AM HELP DESK OPERATOR Ordered by an unspecified provider. us Historical Provider Final Res ult documented in this encounter Visit Diagnoses Not on filedocumented in this encounter Additional Health Concerns Infection Onset Date Last Indicated Resolved Time COVID: Suspected 12/21/2019 12/21/2019 01/04/2020 3:05 AM CDT documented as of this encounter Care Teams Instrument/Control Technician Relationship Specialty Start Date End Date Raphael Whaley MD [address] [place] [address] PCP - General 01/14/15 11/11/18 Andrea Caputo MD [address] [place] [address] PCP - General Gastroenterology 11/12/18 10/28/19 [place] [address] [place] [address] PCP - General Internal Medicine 10/29/19 Andrea Caputo MD [address] [place] [address] Referring Physician Gastroenterology 11/12/18 10/28/19 documented as of this encounter
--- OUTSIDE RECORDS SUMMARY | 2025-01-13 14:16 | XMS_ITS | Clinical Summary ---
Author Organization [facility] Address [address] [place] [address] Care Team Providers Care Operating Room Registered Nurse Name Role Phone April Perla MD Primary Care Provider [phone] Source Comments [facility],non-owned Affiliates and Associated Physician Practices is amultiple site organization consisting of ambulatory clinics and hospital sitesin [place], [place], [place] and [place]. This disclosure is being madepursuant to the Care Everywhere program and may not contain all information available regarding this patient. Last updated 18.[facility] Social History Tobacco Use Types Packs/Day Years Used Date Smoking Tobacco: Never Assessed Sex and Gender Information Value Date Recorded Sex Assigned at Not on file Legal Sex Male 5:42 PM LINE CONSTRUCTION SUPERINTENDENT Gender Identity Not on file Sexual Orientation Not on file Plan of Treatment Health Maintenance Due Date Last Done Comments HIV SCREENING 02/23/2011 HEPATITIS C SCREENING 02/19/2014 DTAP/TDAP/TD VACCINES (1 - Tdap) 02/23/2015 HEPATITIS B VACCINE (1 of 3 - 19+ 3-dose series) 02/23/2015 COVID-19 VACCINE ( - 2023-2 5 season) 2024 DEPRESSION SCREENING 09/02/2024 INFLUENZA VACCINE (Season Ended) 2025 ZOSTER VACCINE (1 of 2) 02/23/2046 HIB VACCINE Aged Out No longer eligi ble based on patient's age to complete this topic HPV VACCINE Aged Out No longer eligi ble based on patient's age to complete this topic MENINGOCOCCAL (Group B) VACC INE SHARED DECISION-MAKING Aged Out No longer eligibl e based on patient's age to complete this topic MENINGOCOCCAL GROUPS A/C/Y/W VACCINE Aged Out No longer eligible b ased on patient's age to complete this topic PNEUMOCOCCAL VACCINE Aged Out No long er eligible based on patient's age to complete this topic Care Teams Operating Room Registered Nurse Relationship Specialty Start Date End Date April Perla MD PCP - General 05/02/11
--- NOTE | 2025-01-13 14:31 | ED_ITS ---
HPI - Headache General Chief Complaint: Headache Stated Complaint: migraine Time Seen by Provider: 01/13/25 14:12 History of Present Illness HPI Narrative: 29-year-old male presents emergency department for evaluation his PCP for head CT. Patient states he has had chronic migraines for several years. About a year ago his migraines changed. States previously he would only get pain with his migraines and now he associated dizziness/lightheadedness, blurred vision, photophobia, phonophobia and nausea. He states the headaches are located on the right frontal and parietal aspect of his head. He denies any recent injury or trauma, diplopia loss of vision, focal numbness or weakness, fever, nuchal rigidity. Patient states he was establishing with his PCP today and was sent to the ED for head CT. Patient states he currently has a mild headache. Normally he takes Excedrin with relief. Related Data Allergies Allergy/AdvReac Type Severity Reaction Status Date / Time No Known Allergies Allergy Unknown Verified 08/04/24 13:36 Review of Systems Review of Systems: All systems reviewed & are unremarkable except as noted in HPI and below PMFSH Social History Social History Smoking status: Never smoker Gender identity (if verbalized by the patient): Male Exam Narrative: GENERAL: Well-appearing, well-nourished, and in no acute distress. HEAD: Normocephalic, atraumatic. EYES: PERRLA and EOMI. ENT: Nares clear, no rhinorrhea or epistaxis. Mucous membranes moist. NECK: Supple. No nuchal rigidity CHEST: Clear to auscultation. No respiratory distress. HEART: Regular rate and rhythm. No murmur heard. Normal peripheral pulses. ABDOMEN: Soft, nontender, nondistended, normal active bowel sounds. EXTREMITIES: Normal range of motion. No edema. SKIN: Warm, dry, no rash. NEURO: No focal deficits. Alert and oriented x4. Cranial nerves 2-12 intact. Strength out of 5 in BUE and BLE. Sensation intact throughout her normal [id number]. No pronator drift. Course Vital Signs Vital signs: Vital Signs Temperature 97.9 F 01/13/25 14:09 Pulse Rate 75 01/13/25 14:09 Respiratory Rate 16 01/13/25 14:09 Pulse Oximetry 98 05/14/25 14:09 Oxygen Delivery Room Air 01/13/25 14:09 Temperature 97.9 F 01/13/25 14:09 Pulse Rate 75 01/13/25 14:09 Respiratory Rate 16 01/13/25 14:09 Pulse Oximetry 98 01/13/25 14:09 Oxygen Delivery Room Air 01/13/25 14:09 MDM - Headache MDM Narrative Medical decision making narrative: 29-year-old male with reported history of chronic migraines presents to the ED per his PCP for a head CT. Patient has had headaches for several years but reports a year ago the migraines changes and are now associated with photophobia, phonophobia, nausea, dizziness/lightheadedness. He had his first appointment with his new PCP today and was sent to the ED for a CT brain. On arrival to the ED, triage vitals are stable. Pt is afebrile and nontoxic appearing. No nuchal rigidity. No neurologic deficits. CT brain shows no acute intracranial findings. Pt updated on results. He received a migraine cocktail with improvement. Presentation consistent with migraines. Pt will be discharged with prescription for NSAIDs and advised to f/u with PCP. He does inform me that his PCP's refer to to a neurologist, encouraged him to follow up with them as well. Strict ED return precautions discussed. He is agreeable with the plan and verbalized understanding. D/c in stable condition. Discharge Plan Discharge Clinical Impression: Headache Qualifiers: Headache type: unspecified Headache chronicity pattern: chronic headache Intractability: intractable Qualified Code(s): R51.9 - Headache, unspecified Patient Disposition: Home Condition: Stable Instructions: Antibiotic Form, Acute Headache (ED) Additional Instructions: You were evaluated in the emergency department for chronic headaches. Your exam is reassuring. The CT for brain shows no acute intracranial abnormality. Please take ibuprofen as needed for headache and follow-up with your PCP and the neurologist they are referring you to. Return to the emergency department if you develop vision changes, focal numbness or weakness, fever, or other concerning symptoms. Patient Language: Albanian Prescriptions: New ibuprofen 800 mg tablet 800 mg PO TID PRN (Reason: pain) Qty: 20 0RF No Action benzonatate 100 mg capsule 100 mg PO BID PRN (Reason: cough) Qty: 14 0RF albuterol sulfate 90 mcg/actuation HFA aerosol inhaler 2 puff inhalation QID PRN (Reason: shortness of breath or wheezing) Qty: 6.7 0RF prednisone 20 mg tablet 40 mg PO DAILY 5 Days Qty: 10 0RF amoxicillin 875 mg tablet 875 mg PO Q12H 7 Days Qty: 14 0RF Follow-up/Referrals: Toy Thapa MD [Primary Care Provider] -
[2025-01-13] MEDS: METOCLOPRAMIDE HCL 10 MG TABLET PO (14:42)
[2025-01-13] MEDS: IBUPROFEN 400 MG TABLET 800 MG PO (14:42)
[2025-01-13] MEDS: diphenhydrAMINE HCl CAP 25 MG CAPSULE PO (14:43)
== END 2025-01-13 15:18 | disposition home or self-care (01) ==
PROVIDERS: Emergency Provider Physician Assistant; PCP Emergency Medicine
DX: R51.9 Headache, unspecified (principal)
CPT/HCPCS: 70450; 99284; A9270

== ENCOUNTER → 2025-01-14 11:47 | Outpatient (CLI) | payer OTHER, SELFPAY ==
--- NOTE | ~2025-01-14 | XR_ITS ---
Thoracic spine: Clinical Indication: Back pain AP and lateral views were performed. No fracture is seen. There is normal alignment of the vertebrae. The intervertebral disc spaces appe ar normal. Paravertebral soft tissues appear normal. Impression: No significant abnormalities noted. Reviewed, dictated and finalized at [facility]. Impression: No significant abnormalities noted.
--- NOTE | ~2025-01-14 | XR_ITS ---
Lumbosacral Spine: AP, oblique, and lateral views Clinical History: Pain Findings: The normal lordotic curve is maintained. The vertebral bodies and posterior elements are i ntact. The intervertebral disc spaces are preserved. The sacroiliac joints are normally outlined. Impression: No significant abnormality. Reviewed, dictated and finalized at [facility]. Impression: No significant abnormality.
== END ==
LOC: EXPCRAD 11:50
PROVIDERS: PCP Emergency Medicine; Visit Provider Emergency Medicine
DX: M54.50 Low back pain, unspecified (principal); M54.6 Pain in thoracic spine
CPT/HCPCS: 72072; 72110

== ENCOUNTER → 2025-01-22 15:36 | Outpatient (CLI) | payer OTHER, SELFPAY ==
--- NOTE | ~2025-01-22 | XR_ITS ---
HISTORY: rib upper back and rib pain , NKI COMPARISON: 11/04/2022 (plain film evaluation of the left ribs with a PA of the chest). TECHNIQUE: 3 views of the right ribs were performed, along with a PA and lateral view of the chest. FINDINGS: No acute displaced fracture is appreciated. Bone mineralization is age-appropriate. The cardiomediastinal silhouette is unremarkable. The lungs are clear. IMPRESSION: No acute displaced right-sided rib fracture is identified. The lungs are clear. Reviewed, dictated and finalized at location A.
== END ==
LOC: EXPCRAD 15:39
PROVIDERS: PCP Emergency Medicine; Visit Provider Emergency Medicine
DX: R07.81 Pleurodynia (principal); R07.9 Chest pain, unspecified
CPT/HCPCS: 71046; 71100